=== PATIENT | male | born 1960 | race Caucasian/White ===

== ENCOUNTER 2018-02-20 08:32 | Day surgery (SDC) | payer OTHER ==
[~2018-02-20] VITALS: Ht 182.9 cm; Wt 102.9 kg
[~2018-02-20 08:32] MED LIST: CLARITIN 1010 MG/TAB PO; COMBIVENT INH14.7 GM IH; COUMADIN 1010 MG/TAB PO; COUMADIN 1MG1 MG/TAB PO; COUMADIN 77.5 MG/TAB PO; FIORICET 325 MG1 TA1 PO; IMODIUM 2MG CAPS2 MG PO; NEXIUM 40MG40 MG PO; PRINIVIL10 MG PO; ULTRAM ER100 MG PO; VENTOLIN0.09 MG IH; VOLTAREN GEL 1%1 TU TP
[2018-02-20 08:59] VITALS: BP 126/83; PULSE 79; TEMP 97.2
[2018-02-20] MEDS ORDERED: ZESTRIL 20MG TA20 MG PO (09:15)
[2018-02-20] MEDS ORDERED: VITAMIN D 400400 IU PO (09:16)
[2018-02-20] MEDS ORDERED: ZYRTEC-D 5 MG-11 TER PO (09:17)
[2018-02-20] MEDS ORDERED: LIPITOR 40MG TA40 MG PO (09:18)
[2018-02-20] MEDS ORDERED: TRICOR145 MG PO (09:19)
[2018-02-20] MEDS ORDERED: PRILOSEC 20MG20 MG PO (09:21)
[2018-02-20 10:43] VITALS: BP 135/78; PULSE 77
[2018-02-20 10:58] VITALS: BP 131/78; PULSE 73
[2018-02-20 11:12] VITALS: BP 116/84; PULSE 71
[2018-02-20 11:28] VITALS: BP 102/67; PULSE 69
[2018-02-20 11:43] VITALS: BP 111/76; PULSE 58
== END 2018-02-20 12:40 | disposition home or self-care (01) ==
LOC: SDCO 08:32
DX: Z12.11 Encounter for screening for malignant neoplasm of colon (principal); Z86.010 Personal history of colon polyps; D12.2 Benign neoplasm of ascending colon; D12.0 Benign neoplasm of cecum; I10 Essential (primary) hypertension
CPT/HCPCS: OP; J2250; J3010; J7030

== ENCOUNTER 2018-08-12 19:31 | Observation (INO) | payer OTHER ==
[~2018-08-12] VITALS: Ht 182.9 cm; Wt 102.2 kg
[~2018-08-12 19:31] MED LIST changes: +LIPITOR 40MG TA40 MG PO; +PRILOSEC 20MG20 MG PO; +TRICOR145 MG PO; +VITAMIN D 400400 IU PO; +ZESTRIL 20MG TA20 MG PO; +ZYRTEC-D 5 MG-11 TER PO
[2018-08-12 20:06] VITALS: BP 126/90; PULSE 83; TEMP 97.8
[2018-08-12] MEDS ORDERED: TYLENOL 325MG325 MG PO (20:46)
[2018-08-12 22:29] LABS: TROPONIN-I 3 HR POST INITIAL < 0.012 ng/mL (0.000-0.034)
[2018-08-13] VITALS (7 sets, daily range): BP systolic 115–155; BP diastolic 65–89; PULSE 68–91; TEMP 97.4–98.2
[2018-08-13 06:21] LABS: INR 1.4 (0.8-3.0); PROTHROMBIN TIME 15.9 SECONDS (9.7-12.8)
[2018-08-13 06:25] LABS: ALANINE AMINOTRANSFERASE 40 U/L (21-72); ALBUMIN 3.8 gm/dL (3.5-5.0); ALKALINE PHOSPHATASE 74 U/L (50-136); ANION GAP 6 mmol/L (7-16); AST,SGOT 22 U/L (15-37); BILIRUBIN,TOTAL 0.3 mg/dL (0.0-1.0); BLOOD UREA NITROGEN 20 mg/dL (9-20); CALCIUM 9.3 mg/dL (8.4-10.2); CARBON DIOXIDE 24 mmol/L (22-30); CHLORIDE 108 mmol/L (98-107); CHOLESTEROL 235 mg/dL (120-200); CHOLESTEROL RISK RATIO 8.3; CREATININE, serum 0.87 mg/dL (0.66-1.25); GLUCOSE 100 mg/dL (74-106); POTASSIUM 4.4 mmol/L (3.4-5.0); SODIUM 139 mmol/L (137-145)
[2018-08-13 06:35] LABS: TRIGLYCERIDE 570 mg/dL
[2018-08-13 06:59] LABS: BASO # 0.1 (0.0-0.2); EOS # 0.3 (0.0-0.7); EOS % 3.5 % (0-4.0); GRAN # 6.2 (1.4-6.5); GRAN % 64.9 % (42.2-75.2); HEMATOCRIT 45.7 % (42.0-52.0); HEMOGLOBIN 15.5 g/dl (13.5-18.0); LYMPH % 21.4 % (20.0-51.0); MEAN CELL VOLUME 91 fl (80.0-100.0); MEAN CORPUSCULAR HEMOGLOBIN 31 pg (27.0-31.0); MEAN CORPUSCULAR HGB CONC 34 g/dl (33.0-37.0); MEAN PLATELET VOLUME 11.4 fl (7.4-10.4); MONO # 0.8 (0.1-0.6); MONO % 8.7 % (1.7-9.3); PLATELET COUNT 212 K/mm3 (130-400); RED BLOOD COUNT 5.02 M/mm3 (4.20-5.60)
[2018-08-14 04:00] VITALS: BP 131/83; PULSE 85; TEMP 97.8
[2018-08-14 06:50] LABS: BASO # 0.1 (0.0-0.2); BASO % 1.4 % (0.0-2.0); EOS # 0.2 (0.0-0.7); EOS % 2.7 % (0-4.0); GRAN % 56.3 % (42.2-75.2); HEMATOCRIT 47.2 % (42.0-52.0); HEMOGLOBIN 15.9 g/dl (13.5-18.0); LYMPH # 2.7 (1.2-3.4); LYMPH % 30.6 % (20.0-51.0); MEAN CELL VOLUME 92 fl (80.0-100.0); MEAN CORPUSCULAR HEMOGLOBIN 31 pg (27.0-31.0); MEAN CORPUSCULAR HGB CONC 34 g/dl (33.0-37.0); MEAN PLATELET VOLUME 10.9 fl (7.4-10.4); MONO # 0.7 (0.1-0.6); MONO % 8.4 % (1.7-9.3); PLATELET COUNT 221 K/mm3 (130-400); RED BLOOD COUNT 5.16 M/mm3 (4.20-5.60); REDCELL DISTRIBUTION WIDTH-CV 13.2 % (11.5-14.5)
[2018-08-14 06:59] LABS: CALCIUM 9.3 mg/dL (8.4-10.2); CREATININE, serum 0.86 mg/dL (0.66-1.25); POTASSIUM 4.7 mmol/L (3.4-5.0)
[2018-08-14] MEDS ORDERED: LIPITOR 80MG80 MG PO (07:25)
[2018-08-14 07:27] VITALS: BP 124/80; PULSE 86; TEMP 97.9
[2018-08-14 08:26] LABS: INR 1.4 (0.8-3.0)
[2018-08-14] MEDS ORDERED: COUMADIN 1010 MG/TAB PO (09:09)
== END 2018-08-14 14:48 | disposition home or self-care (01) ==
LOC: MEDICAL 19:31
PROVIDERS: Nurse Practitioner; Physician Assistant
DX: R07.9 Chest pain, unspecified (principal); R41.82 Altered mental status, unspecified; Z86.73 Personal history of transient ischemic attack (TIA), and cerebral infarction without residual deficits; Q44.6 Cystic disease of liver; I10 Essential (primary) hypertension; E78.5 Hyperlipidemia, unspecified; I47.1 Supraventricular tachycardia; Q21.1 Atrial septal defect; Q61.3 Polycystic kidney, unspecified; F17.210 Nicotine dependence, cigarettes, uncomplicated; I48.91 Unspecified atrial fibrillation; Q23.1 Congenital insufficiency of aortic valve; I71.4 Abdominal aortic aneurysm, without rupture; E78.1 Pure hyperglyceridemia; Z79.01 Long term (current) use of anticoagulants; Z82.49 Family history of ischemic heart disease and other diseases of the circulatory system; Z80.49 Family history of malignant neoplasm of other genital organs; Z83.3 Family history of diabetes mellitus; Z23 Encounter for immunization
CPT/HCPCS: G0008; G0378; J1650

== ENCOUNTER → 2021-04-16 | Outpatient (CLI) | payer OTHER ==
[~2021-04-16] MED LIST changes: +LIPITOR 80MG80 MG PO; +TYLENOL 325MG325 MG PO
== END ==
LOC: COL.RAD 13:15
DX: S46.012A Strain of muscle(s) and tendon(s) of the rotator cuff of left shoulder, initial encounter (principal); M25.412 Effusion, left shoulder

== ENCOUNTER 2022-08-30 11:41 | Day surgery (SDC) | payer OTHER ==
[~2022-08-30] VITALS: Ht 182.9 cm; Wt 87.5 kg
[2022-08-30] MEDS ORDERED: ELIQUIS 5MG PO (12:46)
[2022-08-30] MEDS ORDERED: LOVENOX INJ (12:47)
[2022-08-30 13:04] VITALS: BP 115/80; PULSE 85; TEMP 98.8
[2022-08-30 14:34] VITALS: BP 100/67; PULSE 64; TEMP 97.6
[2022-08-30 14:49] VITALS: BP 114/77; PULSE 76
[2022-08-30 15:04] VITALS: BP 130/85; PULSE 74
[2022-08-30 15:19] VITALS: BP 128/80; PULSE 74
--- NOTE | 2022-08-30 15:30 | NUR ---
1434 AMBULATES FROM CART TO RECLINER WITH STANDBY ASSIST. MONITORS ON VITAL SIGNS OBTAINED. A;ERT. DENIES NAUSEA OR ABD PAIN. SIGNIFICANT OTHER IN ROOM. CALL LIGHT AT SIDE. 1435 DR. SANTIAGO HERE TO VISIT WITH PATIENT 1500 TOLERATES PO JUICE AND REJI CRACKERS WITHOUT NAUSEA. 1505 DISCHARGE INSTRUCTIONS REVIEWED WITH PATIENT VERBALIZING UNDERSTANDING. COPY PROVIDED. 1520 DRESSES SELF.
[2022-08-30 21:15] VITALS: BP 80/58; PULSE 75
== END 2022-08-30 15:30 | disposition home or self-care (01) ==
LOC: SDCO 11:41
DX: Z12.11 Encounter for screening for malignant neoplasm of colon (principal); D12.8 Benign neoplasm of rectum; K62.1 Rectal polyp; D12.2 Benign neoplasm of ascending colon; D12.3 Benign neoplasm of transverse colon; D12.5 Benign neoplasm of sigmoid colon; Z87.891 Personal history of nicotine dependence
CPT/HCPCS: J2704; J7120

== ENCOUNTER 2023-11-07 11:17 | Day surgery (SDC) | payer OTHER ==
[~2023-11-07] VITALS: Ht 182.9 cm; Wt 93.0 kg
[~2023-11-07 11:17] MED LIST changes: +ELIQUIS 5MG PO; +LOVENOX INJ; +LR 1,000 ML IV SCH; +Ondansetron 4 MG/2 ML VIAL IV PRN
--- NOTE | 2023-11-07 12:12 | NUR ---
Pt arrived with , MATTI, states prep went well and bowels are clear, to place PIV; reviewed meds, allergies, and history.
[2023-11-07 12:14] VITALS: BP 134/97; PULSE 82; TEMP 98.9
[2023-11-07] MEDS ORDERED: Lidocaine PF 2% (20 MG/ML) 5 ML VIAL ONE (13:01)
[2023-11-07 13:57] VITALS: BP 139/101; PULSE 71; TEMP 97
[2023-11-07 14:12] VITALS: BP 123/95; PULSE 83
[2023-11-07 14:28] VITALS: BP 139/101; PULSE 64
--- NOTE | 2023-11-07 14:55 | NUR ---
1357-PATIENT ARRIVED VIA CART TO [facility] [address], DROWSY BUT ORIENTED ON ARRIVAL. PATIENT AMBULATED WITH ASSISTANCE TO RECLINER, WARM BLANKETS PROVIDED. VITAL SIGNS TAKEN, ELEVATED DIASTOLIC NOTED. PATIENT DENIES PAIN OR NAUSEA. REPORT OBTAINED FROM JANE CHRISTIANSEN. UPDATE GIVEN TO PATIENT AND SIGNIFICANT OTHER AT BEDSIDE. 1412-DR. SANTIAGO AT BEDSIDE, PROCEDURE FINDINGS DISCUSSED WITH PT. PT TOLERATING PO INTAKE WELL. VSS. 1430-DISCHARGE INSTRUCTIONS REVIEWED WITH PT, QUESTIONS INVITED. IV CATHETER DISCONTINUED, TIP INTACT. PRESSURE HELD AND BANDAGE APPLIED. PATIENT AMBULATED TO BATHROOM INDEPENDENTLY AND DRESSED SELF. 1450-PATIENT DISCHARGED HOME TO [facility] VIA WHEELCHAIR, ACCOMPANIED BY SIGNIFICANT OTHER. ALL BELONGINGS AND D/C PAPERWORK SENT WITH PT.
== END 2023-11-07 14:50 | disposition home or self-care (01) ==
LOC: SDCO 11:17
DX: Z12.11 Encounter for screening for malignant neoplasm of colon (principal); D12.2 Benign neoplasm of ascending colon; K21.9 Gastro-esophageal reflux disease without esophagitis; K57.30 Diverticulosis of large intestine without perforation or abscess without bleeding; I10 Essential (primary) hypertension; Z87.891 Personal history of nicotine dependence; Z79.899 Other long term (current) drug therapy
CPT/HCPCS: J2704; J7120